=== PATIENT | female | born 1970 | race Caucasian/White ===

== ENCOUNTER 2019-05-20 10:10 | Emergency (ER) | payer OTHER, SELFPAY ==
[2019-05-20 10:12] VITALS: BP 131/52; PULSE 69; RESP 24; TEMP 36.8; O2SAT 97
--- NOTE | 2019-05-20 10:18 | W.ED.GENAD ---
Discharge Plan Disposition Patient Disposition: HOME Condition: Improving Discharge Details Chief Complaint: SOB Clinical Impression: Mild intermittent reactive airway disease Primary Care Provider: Rui Wood ED Provider: Jalen Gupta Home Meds and New Rx's Prescriptions: Continued albuterol sulfate [Proventil HFA] 90 mcg/actuation HFA aerosol inhaler 2 puff Inhalation PRN PRN (Reason: SOB, wheezing) Qty: 8.5 RF: 3 ibuprofen 600 MG tablet 600 mg PO Q6H PRN (Reason: Pain) Qty: 30 RF: 0 (DME) inhalational spacing device [AeroChamber Plus Z Stat Sm Msk] 1 EACH spacer 1 ea Miscellaneous Q4H PRN Qty: 1 RF: 0 Discharge Instructions Instructions: Asthma (ED) Additional Instructions: Follow-up in primary care clinic for recheck as planned. Use albuterol inhaler with spacer up to 2 puffs every 4 hours if needed. Return for increased difficulty breathing or any other acute concerns. Medical Decision Making 48-year-old female with a history of reactive airway disease, lost her inhaler 10 to 14 days ago and over the past 2 days had mild increased shortness of breath. She is afebrile, normal oxygen, speaking in full sentences without distress. States she is worried that her wheezing will get worse without the use of a beta agonist. Provided albuterol inhaler with spacer. 2 puffs given and patient observed with improvement. Do not feel she requires further work-up at this time. She has pre-standing plans for outpatient follow-up. Stable for discharge to home HPI General Mode of arrival: ambulatory. Date/Time Provider Initiated Documentation: 05/20/19 10:11. Limitations to Documentation: no limitations. Information obtained by: patient. History of Present Illness 48 year old F presents to the emergency department with the chief complaint of Short of breath, described as mild and similar to prior episodes, Quality is described as dull, and is localized to the chest. Patient reports no radiation. Patient started experiencing this day(s) and it has been intermittent. No relieving factors improve symptom(s), No exacerbating factors reported . Patient notes no other symptoms.; denies chest pain, cough and fever/chills. Patient did receive the following treatments prior to arrival, none Related Data Home Medications Medication Instructions Recorded Confirmed ibuprofen 600 mg PO Q6H PRN #30 tab 01/29/17 05/20/19 inhalational spacing device #1 spacer 11/01/17 [AeroChamber Plus Z Stat Sm Msk] albuterol sulfate 90 mcg/actuation 2 puff INHALATION PRN PRN #8.5 gm 08/31/18 05/20/19 aerosol inhaler Previous Rx's Medication Instructions Recorded ibuprofen 600 mg PO Q6H PRN #30 tab 01/29/17 inhalational spacing device #1 spacer 11/01/17 [AeroChamber Plus Z Stat Sm Msk] albuterol sulfate 90 mcg/actuation 2 puff INHALATION PRN PRN #8.5 gm 08/31/18 aerosol inhaler Allergies Allergy/AdvReac Type Severity Reaction Status Date / Time No Known Allergies Allergy Verified 05/20/19 10:18 General Stated Complaint: SOB NATALIA: 4 Review of Systems Review of Systems Denies recent illness. No fever, cough, vomiting. 6 systems reviewed and negative. 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 Pleasant, well groomed, interactive. HEAD: Normocephalic, atraumatic ENT: Mucous membranes moist, oropharynx unremarkable, External ear exam unremarkable EYES: PERRL, EOMI NECK: Full ROM, no ANUP, no menigismus CHEST/RESP: Nontender, bilateral scattered wheezes, left greater than right. Speaking in full sentences CARDIOVASCULAR: RRR, no murmur, rub paul. 2+ Rad pulse bilateral ABDOMEN: Soft, nontender, no mass. +Bowel sounds EXT: Full ROM, no edema, no rash Neuro: Grossly normal neurologic exam, conversant, interactive. Psych: Speech fluent, thoughts congruent, affect normal Course Vital Signs Temperature 36.8 C 05/20/19 10:12 Pulse 69 05/20/19 10:12 Respiratory Rate 24 05/20/19 10:12 Blood Pressure 131/52 L 05/20/19 10:12 Pulse Oximetry 97 05/20/19 10:12 Temperature 36.8 C 05/20/19 10:12 Temperature Source Skin 05/20/19 10:12 Pulse 69 05/20/19 10:12 Respiratory Rate 24 05/20/19 10:12 Blood Pressure 131/52 L 05/20/19 10:12 Blood Pressure Position Supine 05/20/19 10:12 Pulse Oximetry 97 05/20/19 10:12 Oxygen Delivery Method Room Air 05/20/19 10:12 Oxygen Flow Rate 0 05/20/19 10:12
[2019-05-20] MEDS: Albuterol HFA 8 GM 60 PUFF INH IH (10:19)
[2019-05-20 10:21] VITALS: RESP 24
== END 2019-05-20 10:36 | disposition home or self-care (01) ==
PROVIDERS: Emergency Provider Emergency Medicine; PCP Family Medicine
DX: J45.909 Unspecified asthma, uncomplicated (principal); Z87.891 Personal history of nicotine dependence
CPT/HCPCS: 99283

== ENCOUNTER 2019-09-08 15:10 | Emergency (ER) | payer OTHER, SELFPAY ==
[2019-09-08] VITALS (13 sets, daily range): BP systolic 145–157; BP diastolic 78–92; PULSE 78–89; RESP 4–24; TEMP 36.2; O2SAT 94–97
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
[2019-09-08] MEDS: Albuterol/Ipratropium 3 ML UPD VIAL UPD (15:20)
[2019-09-08] MEDS: predniSONE 20 MG TAB 60 MG PO (15:22)
--- NOTE | 2019-09-08 15:44 | DI.RAD_ITS ---
EXAM: XR CHEST 2V PA LATERAL INDICATION: cough, sob, r/o pneumonia. COMPARISON: No exams were available for comparison TECHNIQUE: 2D digital imaging was performed. FINDINGS: The heart size is normal. The lungs are clear. No infiltrate or effusion is seen. Degenerative maira nges are seen at seen in the mid cervical spine thoracic spine. IMPRESSION: No acute abnormality.
[2019-09-08] MEDS: Albuterol/Ipratropium 3 ML UPD VIAL ×2 (16:21→16:29)
--- NOTE | 2019-09-08 16:21 | DI.VRAD_ITS ---
PROCEDURE INFORMATION: Exam: XR Chest, 2 Views Exam date and time: 09/08/2019 3:44 PM Clinical history: 49 years old, female; Other: Cough, SOB, R/O pneumonia TECHNIQUE: Imaging protocol: XR of the chest Views: 2 views. COMPARISON: CR CHEST 2 VIEWS PA,LAT 11/01/2017 10:08 AM FINDINGS: Lungs: Unremarkable. No consolidation. Pleural space: Unremarkable. No pleural effusion. No pneumothorax. Heart/Mediastinum: Unremarkable. No cardiomegaly. Bones/joints: Unremarkable. IMPRESSION: No acute findings. Dictated and Authenticated by: Ira Cruz MD. Ordering:JACKIE Davis MD
[2019-09-08] MEDS: Albuterol HFA 8 GM 60 PUFF INH IH (16:37)
[2019-09-08] MEDS: Inhaler, Assist Device 1 EACH MC (16:39)
== END 2019-09-08 17:25 | disposition home or self-care (01) ==
PROVIDERS: Emergency Provider Physician Assistant; PCP Family Medicine
DX: J45.41 Moderate persistent asthma with (acute) exacerbation (principal)
CPT/HCPCS: 99283; 71046; J7512; J7620

== ENCOUNTER 2020-02-25 09:58 | Outpatient (CLI) | payer OTHER, SELFPAY ==
[2020-02-26 14:51] LABS: COVID-19 RT-PCR Result Not Detected ((See Note))
== END 2020-02-25 10:18 ==
PROVIDERS: PCP Family Medicine; Visit Provider Family Medicine
DX: R50.9 Fever, unspecified (principal)
CPT/HCPCS: U0003

== ENCOUNTER 2021-03-09 00:14 | Emergency (ER) | payer OTHER, SELFPAY ==
[2021-03-09 00:18] VITALS: BP 151/86; PULSE 82; RESP 18; TEMP 35.9; O2SAT 95
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
[2021-03-09] MEDS: Dexamethasone 10 MG/ML VIAL PO (00:45)
[2021-03-09] MEDS: Amoxicillin 875/Clav. 125 TAB PO (00:46)
== END 2021-03-09 00:55 | disposition home or self-care (01) ==
PROVIDERS: Emergency Provider Emergency Medicine; PCP Family Medicine
DX: K04.7 Periapical abscess without sinus (principal)
CPT/HCPCS: 99283; J1100; J2001

== ENCOUNTER 2021-03-10 10:43 | Inpatient (IN) | payer OTHER, SELFPAY ==
[2021-03-10] VITALS (48 sets, daily range): BP systolic 101–143; BP diastolic 44–89; PULSE 52–95; RESP 11–24; TEMP 36.3–36.8; TEMPC 36.5; O2SAT 90–99; BMI 29.8
--- NOTE | 2021-03-10 11:15 | RT.EKG_ITS ---
APPROVED REPORT Exam: Resting ECG Reason for Exam: epigastric pain Patient Location: E HR:76 bpm ECG Measurements Heart Rate 76 AXIS RI 143 P 52 QRSd 94 QRS 66 QT 363 T 45 QTc 410 Conclusion Sinus rhythm...normal P axis, V-rate 60- 99 Probable inferior infarct, old...Q>35mS, II III aVF Physician: no stemi, old q waves in inferior and lateral leads. no prior for comparison
--- NOTE | 2021-03-10 11:15 | DI.CT_ITS ---
Exam(s) CT ABDOMEN PELVIS W EXAM: CT ABDOMEN PELVIS W CLINICAL HISTORY: vomiting blood, epigastric pain. TECHNIQUE: Imaging Protocol: Axial computed tomography images with coronal and sagittal reformatted images were created and reviewed CONTRAST MATERIAL: Intravenous: Omnipaque 350 Contrast volume:100 cc Oral: no COMPARISON: CR,XR XR CHEST 2V PA LATERAL from 09/08/2019 CR,XR XR CHEST 2V PA LATERAL from 09/08/2019 FINDINGS: ABDOMEN: Lung Bases: Normal where visualized. Moderate-sized hiatal hernia. Question of thickening of the dis leslie esophagus. A very small portion of the distal esophagus is included on the exam. Liver: Mild enlargement. Mild fatty infiltration.. No measurable mass. Gallbladder and biliary tract: No radiodense calculus or dilation. Pancreas: Normal density, no abnormal calcifications or inflammatory process. Spleen: Normal. Kidneys: Normal size, contour and axis. No radiodense stones or obstructive uropathy. No masses seen. Adrenal glands: No masses seen. Abdominal Aorta: Abdominal portion non-dilated. Minimal calcification. PELVIS: Bladder: Symmetric distention, no gross wall thickening. Bowel: No obstruction or bowel wall thickening. Peritoneal cavity: No ascites, collection or mesenteric inflammatory response. Bones: Within normal limits. Reproductive organs: Within normal limits. Lymph nodes: Unremarkable. Impression: Moderate size hiatal hernia. Question of distal esophageal wall thickening. RADIATION DOSE DELIVERED: 929.53mGy.cm Total DLP DATA REPOSITORY: All CT scans at this facility are submitted to the National Radiology Data Registry (NRDR) Dose Index Registry (DIR) with the [employer] (A[employer]). RADIATION OPTIMIZATION: All CT scans at this facility use at least one of these dose optimization te chniques: automated exposure control; mA and/or kV adjustment per patient size (includes targeted exa ms where dose is matched to clinical indication); or iterative reconstruction.
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
[2021-03-10] MEDS: Pantoprazole 40 MG VIAL IVP (11:38)
[2021-03-10] MEDS: Ondansetron 4 MG/2 ML VIAL IVP ×2 (11:39→20:56)
[2021-03-10 11:57] LABS: Abs Immature Grans 0.03 10^3/uL (0.0-0.06); Absolute Eosinophil Count 0.32 10^3/uL (0.0-0.7); Absolute Lymphocyte Count 1.72 10^3/uL (1.2-3.4); Absolute Neutrophil Count 9.53 10^3/uL (1.2-6.7); Basophils % 0.2; Eosinophils % 2.6; HCT 43.1 % (36.0-46.0); HGB 14.2 g/dL (11.2-15.7); Immature Grans % 0.2; Lymphocytes % 13.9; MCH 28.6 pg (27.0-33.0); MCHC 32.9 % (32.0-36.0); MCV 86.7 fL (80-95); MPV 11.9 fL (8.0-11.0); Monocytes % 6.1; Nucleated RBC 0 %; Platelet Count 301 10^3/uL (130-400); RBC 4.97 10^6/uL (3.93-5.22); RDW 13.7 % (11.7-14.6); RDW-SD 43.8 fL; WBC 12.38 10^3/uL (4.4-10.8)
[2021-03-10 11:58] LABS: Absolute Basophil Count 0.02 10^3/uL (0.0-0.2); Absolute Monocyte Count 0.76 10^3/uL (0.1-0.8)
[2021-03-10 12:05] LABS: Lipase 76 U/L (73-393)
[2021-03-10] MEDS: Omnipaque 350 MG/ML 100 ML BTL IJ (12:11)
[2021-03-10] MEDS: Normal Saline - Diluent 50 ML VIAL IV (12:11)
[2021-03-10 12:15] LABS: ALT 19 U/L (14-59); AST 11 U/L (15-37); Albumin 3.6 g/dL (3.4-5.0); Alkaline Phosphatase 70 U/L (46-116); Anion Gap 9.5 mmol/L (3-11); BUN 21 mg/dL (7-18); Bilirubin, Total 0.3 mg/dL (0.2-1.0); CO2 27.5 mmol/L (21.0-32.0); CREATININE 1.2 mg/dL (0.55-1.02); Calcium 10.5 mg/dL (8.5-10.1); Chloride 105 mmol/L (98-107); Estimated GFR 47.18 (mL/min/1.73m2); Glucose 156 mg/dL (74-106); Magnesium 1.5 mg/dL (1.8-2.4); Potassium 3.8 mmol/L (3.5-5.1); Sodium 142 mmol/L (136-145); Total Protein 7.7 g/dL (6.4-8.2); Troponin I < 0.05 ng/mL (<0.06)
[2021-03-10] MEDS: ACETAMINOPHEN 1,000 MG/100 ML BTL 400 MG IVPB ×2 (12:15→20:57)
[2021-03-10] MEDS: Normal Saline 1,000 ML 1000 ML IV (12:17)
[2021-03-10 14:33] LABS: Source Nasal/Nares
[2021-03-10] MEDS: fentaNYL 100 MCG/2 ML VIAL 50 MCG IVP (14:38)
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
--- NOTE | 2021-03-10 15:10 | W.PM.ENDDOP ---
Date of service: 03/10/21 Time of Service: 15:10 Endoscopy Report DATE OF PROCEDURE: 03/10/21 PRE-OP DIAGNOSIS: epigstric pain/hematemsis SURGEON: Isabella Singh ANESTHESIA TYPE: General LMA/ETT PATHOLOGY: other COMPLICATIONS: None DISPOSITION: same day PROCEDURE DESCRIPTION: After informed consent was obtained the patient was take to the procedure room and placed in a supine position. Monitors were applied and a time out was done. The patients name, date of , procedure type, allergies to medications and metal in their body was reviewed. A bite block was placed and the patient was sedated. Once sedated and comfortable the gastroscope was advanced through the oropharynx which was grossly normal into the esophagus. The proximal is normal. The mid and distal esophagus shows linear ulcers. Minimal oozing. And severe esophagitis at the GE junction. It almost looks if she may have vomited so hard to get results of Boerhaave's.. In the distal esophagus there was no stricture or diverticula. She does have a 4 cm hiatal hernia sliding-type. The scope was advanced into the stomach and through the pylorus into the 3rd portion of the duodenum. The duodenum was noted to be mild duodenitis in the duodenal bulb Biopsies were done, . all specimens are retrieved and no bleeding noted The scope was retracted back into the stomach and biopsies were done to rule out H. pylori. there is mild gastritis. No signs of active or old bleeding. no gastric Ulcers. The scope was retroflexed. The cardia and fundus were noted to be normal. There medium, 4cm, sliding type a hiatal hernia noted. Biopsies were not done because the esophagus was so friable. The Z line was irregular. The scope was removed and the patient was woken up and taken to PACU. Plan repeat EGD in 6 to 12 weeks to ensure healing.
[2021-03-10 15:12] LABS: COVID-19 PCR Negative (Negative)
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
[2021-03-10] MEDS: Lactated Ringers 1,000 ML 30 ML IV (15:45)
--- NOTE | 2021-03-10 15:56 | STOM_PTH ---
PATIENT: Lona Jerez V LOC: U#:[id number] AGE/SX: 50/F ROOM: 206 RE03/10/[address]: Isabella Singh : 1970 BED: A DIS: 03/11/2021 SPEC #: [id number] RECD: 03/10/21 18:13 STATUS: SOUSky REQ #: [id number] CRALOS: 03/10/21 15:[address]: Isabella Singh DEPT: Surgical Specimen RECD BY: Maddie Ashley ENTERED: 03/10/21 18:15 SP TYPE: STOMACH OTHR DR: Rui Wood DO Tissues: 1 - BIOPSY BOWEL 2 - STOMACH BIOPSY 3 - STOMACH BIOPSY Procedures: GROSS AND MICRO LEVEL 4 Comments: [id number]
--- NOTE | 2021-03-10 16:17 | W.ANESPOSTOP ---
Postoperative Evaluation Date, Time and Location Date Performed: 03/10/21 Time Performed: 16:17 Patient Location: PACU (Phase 2 ) Vital Signs Most Recent Imported Vital Signs: Most Recent Vital Signs Temp Pulse Resp BP Pulse Ox 36.3 C L 66 11 L 132/75 97 03/10/21 10:48 03/10/21 15:30 03/10/21 15:31 03/10/21 15:30 03/10/21 15:31 Most Recent Manually Entered Vital Signs: Adult Blood Pressure: 128/63 Heart Rate: 75 Respirations: 15 Oxygen Saturation (%): 94 Temperature (C): 36.5 C Pain Score (0-10 Scale): 0 Pain Score Most Recent Pain Score: Most Recent Pain Score Pain Level 7 03/10/21 14:38 Assessment Mental Status: Awake (Alert & Oriented to Patient Baseline) Airway and Respiratory Function: Patent airway with normal (patient baseline) respiratory exam Cardiovascular Function: Hemodynamically Stable Hydration Status: Adequately Hydrated Nausea & Vomiting: No Nausea or Vomiting Pain: Pt. Denies Any Pain Peripheral Nerve Block: Patient did not receive a nerve block
[2021-03-10 18:03] LABS: HCG Qual (Serum) Negative
[2021-03-10] MEDS: Sucralfate 1 GM TAB PO ×2 (18:10→20:45)
[2021-03-10] MEDS: PANTOPRAZOLE 80 MG in Normal Saline 100 ML 10 MG IV (18:25)
[2021-03-10] MEDS: Normal Saline Flush 10 ML SYR IVP (20:57)
[2021-03-11] MEDS: Sucralfate 1 GM TAB PO ×3 (01:30→14:17)
[2021-03-11] MEDS: Lactated Ringers 1,000 ML 100 ML IV (01:31)
[2021-03-11 01:38] VITALS: BP 132/81; PULSE 62; RESP 14; TEMP 36.1; O2SAT 98
[2021-03-11] MEDS: ACETAMINOPHEN 1,000 MG/100 ML BTL 400 MG IVPB (04:00)
[2021-03-11] MEDS: PANTOPRAZOLE 80 MG in Normal Saline 100 ML 10 MG IV (04:01)
[2021-03-11 06:52] LABS: Abs Immature Grans 0.02 10^3/uL (0.0-0.06); Absolute Basophil Count 0.04 10^3/uL (0.0-0.2); Absolute Eosinophil Count 0.57 10^3/uL (0.0-0.7); Absolute Lymphocyte Count 2.39 10^3/uL (1.2-3.4); Absolute Monocyte Count 0.59 10^3/uL (0.1-0.8); Absolute Neutrophil Count 4.79 10^3/uL (1.2-6.7); Basophils % 0.5; Eosinophils % 6.8; HCT 37.3 % (36.0-46.0); HGB 11.9 g/dL (11.2-15.7); Immature Grans % 0.2; Lymphocytes % 28.5; MCH 28.1 pg (27.0-33.0); MCHC 31.9 % (32.0-36.0); MCV 88.2 fL (80-95); MPV 11.7 fL (8.0-11.0); Nucleated RBC 0 %; Platelet Count 248 10^3/uL (130-400); RBC 4.23 10^6/uL (3.93-5.22); RDW 13.7 % (11.7-14.6); RDW-SD 44.3 fL
[2021-03-11 07:30] VITALS: BP 134/84; PULSE 58; RESP 19; TEMP 36.6; O2SAT 97
--- NOTE | 2021-03-11 08:23 | PDOC.CMIN ---
- If Service Date Differs Date of service: 03/11/21 Time of Service: 08:28
--- NOTE | 2021-03-11 10:52 | W.PM.PROGNOT ---
Date of Service Date of service: 03/11/21 Time of Service: 10:52 Assessment and Plan Assessment and plan (1) Moderate persistent asthma: Status: Acute Qualifiers: Asthma complication type: uncomplicated Qualified Code(s): J45.40 - Moderate persistent asthma, uncomplicated (2) Gastritis due to nonsteroidal anti-inflammatory drug: Status: Acute Assessment and plan: EGD yesterday, will need PPI x 24 hours Tolerating regular diet Denies any pain at this time. She will d/c on carafate and protonix (3) Abscessed tooth: Status: Acute Subjective Subjective Interval history since last seen: Patient reports she is feeling so much better. She denies having any pain at this time. Exam Const General: cooperative, healthy appearing and comfortable Orientation: alert and oriented x3 Resp Effort & Inspection: normal respiratory effort, no audible wheezes and no cough Objective Last Vital Signs Temp 36.6 C 03/11/21 07:30 Pulse 58 L 03/11/21 07:30 Resp 19 03/11/21 07:30 BP 134/84 03/11/21 07:30 Pulse Ox 97 03/11/21 07:30 Laboratory Results - last 24 hr 03/10/21 03/10/21 03/10/21 11:03 11:03 11:03 WBC 12.38 H RBC 4.97 Hgb 14.2 Hct 43.1 MCV 86.7 MCH 28.6 MCHC 32.9 RDW 13.7 Plt Count 301 MPV 11.9 H Immature Gran % 0.2 Neutrophils % 77.0 Lymphocytes % 13.9 Monocytes % 6.1 Eosinophils % 2.6 Basophils % 0.2 Nucleated RBC % 0 Absolute Neutrophils 9.53 H Absolute Lymphocytes 1.72 Absolute Monocytes 0.76 Absolute Eosinophils 0.32 Absolute Basophils 0.02 Sodium 142 Potassium 3.8 Chloride 105 Carbon Dioxide 27.5 Anion Gap 9.5 BUN 21 H Creatinine 1.2 H Estimated GFR/1.73 m2 47.18 Glucose 156 H Calcium 10.5 H Magnesium 1.5 L Total Bilirubin 0.3 AST 11 L ALT 19 Alkaline Phosphatase 70 Troponin I < 0.05 Total Protein 7.7 Albumin 3.6 Lipase 76 Serum HCG, Qual COVID-19 Source SARS-CoV-2 (PCR) Patient ABO/Rh Antibody Screen 03/10/21 03/10/21 03/10/21 11:03 11:57 14:30 WBC RBC Hgb Hct MCV MCH MCHC RDW Plt Count MPV Immature Gran % Neutrophils % Lymphocytes % Monocytes % Eosinophils % Basophils % Nucleated RBC % Absolute Neutrophils Absolute Lymphocytes Absolute Monocytes Absolute Eosinophils Absolute Basophils Sodium Potassium Chloride Carbon Dioxide Anion Gap BUN Creatinine Estimated GFR/1.73 m2 Glucose Calcium Magnesium Total Bilirubin AST ALT Alkaline Phosphatase Troponin I Total Protein Albumin Lipase Serum HCG, Qual Negative COVID-19 Source Nasal/nares SARS-CoV-2 (PCR) Negative Patient ABO/Rh A Positive Antibody Screen Negative 03/11/21 03/11/21 06:10 08:30 WBC 8.40 D RBC 4.23 Hgb 11.9 D Cancelled Hct 37.3 Cancelled MCV 88.2 MCH 28.1 MCHC 31.9 L RDW 13.7 Plt Count 248 MPV 11.7 H Immature Gran % 0.2 Neutrophils % 57.0 Lymphocytes % 28.5 Monocytes % 7.0 Eosinophils % 6.8 Basophils % 0.5 Nucleated RBC % 0 Absolute Neutrophils 4.79 Absolute Lymphocytes 2.39 Absolute Monocytes 0.59 Absolute Eosinophils 0.57 Absolute Basophils 0.04 Sodium Potassium Chloride Carbon Dioxide Anion Gap BUN Creatinine Estimated GFR/1.73 m2 Glucose Calcium Magnesium Total Bilirubin AST ALT Alkaline Phosphatase Troponin I Total Protein Albumin Lipase Serum HCG, Qual COVID-19 Source SARS-CoV-2 (PCR) Patient ABO/Rh Antibody Screen
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
--- NOTE | 2021-03-11 11:52 | CHAPLAIN ---
Lona was resting in bed when I visited. She was a very pleasant and easily engaged in a conversation sharing some personal history about her spiritual believes. She is a [employer]. 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 She has been in touch with friends by phone. I explained my role and offered support.
[2021-03-11 15:51] VITALS: BP 140/66; PULSE 61; RESP 18; TEMP 36.5; O2SAT 96
== END 2021-03-11 16:33 | disposition home or self-care (01) | DRG 380 ==
LOC: ER 15:37 → SUR 15:53 → ER 16:45 → PDS 16:47 → MS 03-11 08:16 → PDS 03-13 11:45 → MS 03-13 11:45
PROVIDERS: Physician Assistant; Admitting Provider Surgery; Emergency Provider Surgery; PCP Family Medicine; Visit Provider Surgery
PROC: 0DJ68ZZ Inspection of Stomach, Via Natural or Artificial Opening Endoscopic (ICD-10-PCS; CPT 43235; principal; 2021-03-10 13:15)
DX: K22.11 Ulcer of esophagus with bleeding (principal); K22.3 Perforation of esophagus; K44.9 Diaphragmatic hernia without obstruction or gangrene; K29.80 Duodenitis without bleeding; J45.40 Moderate persistent asthma, uncomplicated; K04.7 Periapical abscess without sinus; K29.60 Other gastritis without bleeding; T39.395A Adverse effect of other nonsteroidal anti-inflammatory drugs [NSAID], initial encounter; Z20.822 Contact with and (suspected) exposure to COVID-19
CPT/HCPCS: 43239; 36415; 80053; 83690; 86850; 86900; 86901; 87635; 88305; 93005; 96361; 96365; 96375; 99285; 74177; 83735; 84484; 84703; 85014; 85018; 85025; 93010; 94667; J0131; J2001; J2405; J2704; J3010; J3490